=== PATIENT | male | born 1995 | race Caucasian/White ===

== ENCOUNTER 2022-02-18 22:08 | Emergency (ER) | payer SELFPAY | END 2022-02-19 00:58 | disposition home or self-care (01) | LOC: ERS 22:08 | DX: S06.9X9A Unspecified intracranial injury with loss of consciousness of unspecified duration, initial encounter (principal); S00.83XA Contusion of other part of head, initial encounter; F17.220 Nicotine dependence, chewing tobacco, uncomplicated; Y04.0XXA Assault by unarmed brawl or fight, initial encounter | CPT/HCPCS: 70450; 70486 ==

== ENCOUNTER 2025-05-24 19:04 | Emergency (ER) | payer OTHER, SELFPAY ==
[2025-05-24] MEDS ORDERED: Ibuprofen 200 MG TAB ONE (20:10)
[2025-05-24] MEDS ORDERED: Lidocaine 1% PF 5 ML VIAL ONE (20:10)
== END 2025-05-24 20:26 | disposition home or self-care (01) ==
LOC: ERS 19:04
DX: K02.9 Dental caries, unspecified (principal); F17.220 Nicotine dependence, chewing tobacco, uncomplicated; Z55.6 Problems related to health literacy
CPT/HCPCS: 64400; J0665